=== PATIENT | female | born 1975 | race Caucasian/White ===

== ENCOUNTER 2017-02-18 18:10 | Emergency (ER) | payer OTHER ==
[2017-02-18 18:42] VITALS: BP 101/57
--- NOTE | 2017-02-18 20:54 | UC ---
Laceration HPI - HPI Summary HPI Summary: CUTTING A PLASTIC BAG WITH A KITCHEN KNIFE TODAY AROUND 5:30PM AND CUT HER LEFT FINGER OVER DIP JOINT. LAST TETANUS 08/2015 - History Of Current Complaint Chief Complaint: UCLaceration Stated Complaint: FINGER LACERATION Time Seen by Provider: 02/18/17 20:35 Hx Obtained From: Patient Laceration Location: Hand - OVERLYING LEFT 3RD DIP JOINT Mechanism Of Injury: Sharp Trauma Onset/Duration: Sudden Onset, Lasting Hours, Still Present Severity: Moderate Pain Intensity: 9 Pain Scale Used: 0-10 Numeric Related History: Dominant Hand Right - Allergies/Home Medications Allergies/Adverse Reactions: Allergies Allergy/AdvReac Type Severity Reaction Status Date / Time Amoxicillin [From Augmentin] Allergy Rash Verified 09/06/15 07:27 Clavulanic Acid Allergy Rash Verified 09/06/15 07:27 [From Augmentin] Prednisone Allergy Rash Verified 09/06/15 07:27 PMH/Surg Hx/FS Hx/Imm Hx Endocrine History Of: 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; borderline Denies: Thyroid Disease Cardiovascular History Of: Denies: Cardiac Disorders, Hypertension Respiratory History Of: Reports: Asthma Denies: COPD GI/ History Of: Denies: Ulcer Cancer History Of: Denies: Breast Cancer - Surgical History Surgical History: Yes Surgery Procedure, Year, and Place: tonsillectomy as a child - Family History Known Family History: Positive: Hypertension - Social History Alcohol Use: None Substance Use Type: None Smoking Status (MU): Never Smoked Tobacco Have You Smoked in the Last Year: No - Immunization History Most Recent Influenza Vaccination: 2014 Most Recent Tetanus Shot: Aug 2015 Review of Systems Constitutional: Negative Skin: Other - LACERATION Respiratory: Negative Cardiovascular: Negative Gastrointestinal: Negative All Other Systems Reviewed And Are Negative: Yes Physical Exam Triage Information Reviewed: Yes Appearance: Well-Appearing, No Pain Distress, Well-Nourished Vital Signs: Initial Vital Signs Temp 98.6 F 02/18/17 18:38 Pulse 82 02/18/17 18:38 Resp 16 02/18/17 18:38 BP 101/57 02/18/17 18:38 Pulse Ox 100 02/18/17 18:38 Vital Signs Reviewed: Yes Eyes: Positive: Conjunctiva Clear ENT: Positive: Hearing grossly normal Neck: Positive: Supple Respiratory: Positive: No respiratory distress, No accessory muscle use Cardiovascular: Positive: Pulses Normal Abdomen Description: Positive: Soft Musculoskeletal: Positive: ROM Intact, No Edema Neurological: Positive: Alert Psychological: Positive: Age Appropriate Behavior Skin: Positive: Other - 1CM LINEAR LACERATION LEFT 3RD FINGER OVERLYING DIP JOINT Laceration Repair - Laceration Repair 1 Description: Linear Laceration Size After Repair: Length (cm) - 1CM, Width (mm) - 0MM, Depth (mm) - 2MM Irrigation With Pressure Irrigation Device: Yes Closure Material: Skin Adhesive, SteriStrips Laceration Course/Dx - Differential Dx - Laceration/Wound Provider Diagnoses: LACERATION REPAIR LEFT 3RD FINGER Discharge - Discharge Plan Condition: Stable Disposition: HOME Patient Education Materials: Finger Laceration (ED), Steristrips (ED) Referrals: MAGGY Dejesus [Primary Care Provider] - If Needed Additional Instructions: STERISTRIPS WILL FALL OFF ON THEIR OWN. NO PROLONGED SUBMERSION IN WATER. WEAR SPLINT UNTIL HEALED. SEEK FOLLOW-UP IF YOU DEVELOP SPREADING REDNESS OF THE SKIN, PURULENT DRAINAGE, FEVER, INCREASED PAIN OR ANY OTHER CONCERNING SYMPTOMS
== END 2017-02-18 21:52 | disposition home or self-care (01) ==
LOC: UCEAST 18:10
DX: S61.213A Laceration without foreign body of left middle finger without damage to nail, initial encounter (principal); W26.0XXA Contact with knife, initial encounter; Y93.89 Activity, other specified; Y92.9 Unspecified place or not applicable; Z88.1 Allergy status to other antibiotic agents; R73.03 Prediabetes
CPT/HCPCS: 99211; G0463

== ENCOUNTER 2017-04-20 22:33 | Emergency (ER) | payer OTHER ==
[2017-04-20] MEDS ORDERED: predniSONE TAB* 20 MG PO ONE (22:59)
[2017-04-20] MEDS ORDERED: diPHENhydraMINE PO* 25 MG PO ONE (22:59)
[2017-04-20] MEDS ORDERED: methylPREDNISolone 125 MG* 2 ML VIAL IM ONE (23:16)
[2017-04-20 23:29] VITALS: BP 112/64
--- NOTE | 2017-04-21 00:01 | ED ---
Maurilio Zhang Rebecca, scribed for Janusz Olivo on 04/20/17 at 2302 . Skin Complaint - HPI Summary HPI Summary: Pt is a 41 y/o F who presents to ED c/o rash. Reports rash began suddenly last night on the forehead and spread to the rest of her face tonight. Rash is described as erythematous and hot. Sx aggravated and alleviated by nothing. Denies SOB. Denies any associated pain. Has not taken Benadryl. Has not eaten anything unusual or applied any new face creams or washes. - History of Current Complaint Chief Complaint: EDRashSkinAbscess Time Seen by Provider: 04/20/17 22:56 Stated Complaint: RASH Hx Obtained From: Patient Hx Last Menstrual Period: 4 WEEKS AGO Onset/Duration: Started Days Ago - yesterday, Still Present Timing: Constant Current Severity: None Pain Intensity: 0 Pain Scale Used: 0-10 Numeric Skin Location: Face Character: Redness - and hot Aggravating Symptom(s): Nothing Alleviating Symptom(s): Nothing Associated Signs & Symptoms: Negative - Allergy/Home Medications Allergies/Adverse Reactions: Allergies Allergy/AdvReac Type Severity Reaction Status Date / Time Amoxicillin [From Augmentin] Allergy Rash Verified 04/20/17 22:36 Clavulanic Acid Allergy Rash Verified 04/20/17 22:36 [From Augmentin] Prednisone Allergy Rash Verified 04/20/17 22:36 PMH/Surg Hx/FS Hx/Imm Hx Endocrine/Hematology History: Reports: Hx Diabetes - type 2; borderline Denies: Hx Thyroid Disease Cardiovascular History: Denies: Hx Hypertension Respiratory History: Reports: Hx Asthma Denies: Hx Chronic Obstructive Pulmonary Disease (COPD) GI History: Denies: Hx Ulcer - Surgical History Surgery Procedure, Year, and Place: tonsillectomy as a child Infectious Disease History: No Infectious Disease History: Denies: Hx Clostridium Difficile, Hx Hepatitis, Hx Human Immunodeficiency Virus (HIV), Hx of Known/Suspected MRSA, Hx Shingles, Hx Tuberculosis, Hx Known/ Suspected VRE, Hx Known/Suspected VRSA, History Other Infectious Disease, Traveled Outside the [place] in Last 30 Days - Family History Known Family History: Positive: Hypertension - Social History Alcohol Use: None Substance Use Type: Reports: None Smoking Status (MU): Never Smoked Tobacco Have You Smoked in the Last Year: No Review of Systems Negative: Shortness Of Breath Positive: Rash - erythematous and hot, on the face All Other Systems Reviewed And Are Negative: Yes Physical Exam - Summary Physical Exam Summary: Appearance: Well appearing, no pain distress Skin: warm, dry. Papular rash of the face with some mild erythema. Head/face: normal Eyes: EOMI, JEZ ENT: normal Neck: supple, nontender Resp: CTA, breath sounds present Cardio: RRR, pulses symm Musc: normal, strength/ROM intact Neuro: normal, sensory motor intact, A&Ox3 Triage Information Reviewed: Yes Vital Signs On Initial Exam: Initial Vitals Temp Pulse Resp BP Pulse Ox 98.0 F 94 18 115/78 99 04/20/17 22:36 04/20/17 22:36 04/20/17 22:36 04/20/17 22:36 04/20/17 22:36 Vital Signs Reviewed: Yes Diagnostics - Vital Signs Vital Signs Temp Pulse Resp BP Pulse Ox 04/20/17 22:36 98.0 F 94 18 115/78 99 - Laboratory Lab Statement: Any lab studies that have been ordered have been reviewed, and results considered in the medical decision making process. Course/Dx - Course Assessment/Plan: Pt is a 41 y/o F with a CC of facial rash charcaterized as erythematous and hot since last night. Denies any pain and SOB. Has not taken Benadryl. She was administered Benadryl, Solu-Medrol and Deltasone in the course of the ED. Pt will be D/C to home with a Dx of allergic reaction and Rx for Benadryl and Medrol. - Diagnoses Provider Diagnoses: Allergic reaction Discharge - Discharge Plan Condition: Stable Disposition: HOME Prescriptions: Methylprednisolone [Medrol Dosepak 4 MG*] 0 mg PO .SEE [employer] #1 tab diPHENhydraMINE PO* [Benadryl PO 25 MG TAB*] 25 mg PO TID PRN #20 tab PRN Reason: Itching Referrals: Alexandra SWAIN,Stalin Reynoso [Primary Care Provider] - 3 Days The documentation as recorded by the Maurilio leal Rebecca accurately reflects the service I personally performed and the decisions made by , Janusz Olivo.
== END 2017-04-20 23:29 | disposition home or self-care (01) ==
LOC: ED 22:33
DX: T78.49XA Other allergy, initial encounter (principal); X58.XXXA Exposure to other specified factors, initial encounter; R21 Rash and other nonspecific skin eruption
CPT/HCPCS: 99282; A9270-GY; J2930; J7512

== ENCOUNTER 2017-10-18 21:55 | Emergency (ER) | payer OTHER ==
[2017-10-18] MEDS ORDERED: predniSONE TAB* 20 MG PO ONE (22:23)
[2017-10-18] MEDS ORDERED: Albuterol/Ipratropium NEB.SOL* Albuterol 2.5 MG/Ipratropium 0.5 MG 3 ML INH ONE (22:25)
[2017-10-18 23:16] VITALS: BP 135/76
--- NOTE | 2017-10-20 03:18 | ED ---
Ramesh Zhang Gabriel, scribed for Nilton Hopper MD on 10/18/17 at 2223 . Complex/Multi-Sys Presentation - HPI Summary HPI Summary: This patient is a 42 year old F presenting to [facility] with a chief complaint of chest congestion since couple days. The patient rates the pain 9/10 in severity. Patient reports CP, coughing, and rhinorrhea. Patient denies fever. Patient states colds usually cause her asthma to flare up so she has been using her albuterol inhaler. - History Of Current Complaint Chief Complaint: EDUpperRespComplaint Time Seen by Provider: 10/18/17 22:15 Hx Obtained From: Patient Onset/Duration: Lasting Days - 2, Still Present Timing: Constant Severity Currently: Severe Associated Signs And Symptoms: Positive: Cough, Chest Pain, Other - rhinorrhea. Negative: Fever - Allergies/Home Medications Allergies/Adverse Reactions: Allergies Allergy/AdvReac Type Severity Reaction Status Date / Time Amoxicillin [From Augmentin] Allergy Rash Verified 09/29/17 15:03 Clavulanic Acid Allergy Rash Verified 09/29/17 15:03 [From Augmentin] Prednisone Allergy Rash Verified 09/29/17 15:03 PMH/Surg Hx/FS Hx/Imm Hx Previously Healthy: No Endocrine/Hematology History: Reports: Hx Diabetes - type 2; borderline Denies: Hx Thyroid Disease Cardiovascular History: Denies: Hx Hypertension Respiratory History: Reports: Hx Asthma Denies: Hx Chronic Obstructive Pulmonary Disease (COPD) GI History: Denies: Hx Ulcer - Surgical History Surgery Procedure, Year, and Place: tonsillectomy as a child Infectious Disease History: No Infectious Disease History: Denies: Hx Clostridium Difficile, Hx Hepatitis, Hx Human Immunodeficiency Virus (HIV), Hx of Known/Suspected MRSA, Hx Shingles, Hx Tuberculosis, Hx Known/ Suspected VRE, Hx Known/Suspected VRSA, History Other Infectious Disease, Traveled Outside the [place] in Last 30 Days - Family History Known Family History: Positive: Hypertension - Social History Alcohol Use: Occasionally Substance Use Type: Reports: None Smoking Status (MU): Never Smoked Tobacco Have You Smoked in the Last Year: No Review of Systems Negative: Fever Positive: Nasal Discharge Positive: Chest Pain Positive: Cough All Other Systems Reviewed And Are Negative: Yes Physical Exam - Summary Physical Exam Summary: Appearance: Well appearing, no pain distress Skin: warm, dry, reflects adequate perfusion Head/face: normal Eyes: EOMI, JEZ ENT: normal, Clear post nasal drip and discharge, Left ear is impacted with cerumen Neck: supple, non-tender Respiratory: CTA, breath sounds present Cardiovascular: RRR, pulses symmetrical Abdomen: non-tender, soft Bowel: present Musculoskeletal: normal, strength/ROM intact Neuro: normal, sensory motor intact, A&Ox3 Triage Information Reviewed: Yes Vital Signs On Initial Exam: Initial Vitals Temp Pulse Resp BP Pulse Ox 97.8 F 103 18 129/75 100 10/18/17 21:58 10/18/17 21:58 10/18/17 21:58 10/18/17 21:58 10/18/17 21:58 Vital Signs Reviewed: Yes Diagnostics - Vital Signs Vital Signs Temp Pulse Resp BP Pulse Ox 10/18/17 21:58 97.8 F 103 18 129/75 100 - Laboratory Lab Statement: Any lab studies that have been ordered have been reviewed, and results considered in the medical decision making process. Re-Evaluation - Re-Evaluation First Eval Re-Evaluation Time: 22:32 Change: Unchanged - Patient has allergy to prednisone listed but we discussed this and she states she recently has taken it with no adverse effects. Complex Multi-Symp Course/Dx Course Of Treatment: well appearing with URI/bronchitis sx. Tx symptomatically. F/U closely with PMD. - Diagnoses Provider Diagnoses: Acute bronchitis Discharge - Discharge Plan Condition: Good Disposition: HOME Prescriptions: Guaifenesin/Pseudo 600/60(NF) [Mucinex D 600/60 (NF)] 1 tab PO Q12H #10 tab Oxymetazoline 0.05% NASAL SPR* [Afrin 0.05% NASAL SPRAY*] 1 spray NASAL Q12H PRN 3 Days #1 btl PRN Reason: Congestion predniSONE TAB* [Deltasone TAB*] 50 mg PO DAILY #3 tab Patient Education Materials: Acute Bronchitis (ED) Referrals: Kristy Campos MD [Primary Care Provider] - Additional Instructions: Return with fevers, difficulty breathing, worse or other concerns as discussed. Use inhaler every 4hrs until well. Use humidifier while sleeping. Avoid smoke/ smokers. The documentation as recorded by the Ramesh leal Gabriel accurately reflects the service I personally performed and the decisions made by Ward banuelos Kirk, MD.
== END 2017-10-18 23:09 | disposition home or self-care (01) ==
LOC: ED 21:55
DX: J20.9 Acute bronchitis, unspecified (principal); R05 Cough; R07.9 Chest pain, unspecified; J34.89 Other specified disorders of nose and nasal sinuses
CPT/HCPCS: 94640; 99282; A9270-GY; J7512

== ENCOUNTER 2017-12-09 07:25 | Emergency (ER) | payer SELFPAY ==
--- NOTE | 2017-12-09 08:53 | UC ---
Shoulder Pain HPI - HPI Summary HPI Summary: c/o shoulder arm and flank pain after slipping on the ice last night, states pain has become worse - History of Current Complaint Chief Complaint: UCUpperExtremity Stated Complaint: SHOULDER BACK UPPER ARM Time Seen by Provider: 12/09/17 08:38 Hx Obtained From: Patient Hx Last Menstrual Period: on prevara ?: No Onset/Duration: Sudden Onset Timing: Hours Severity Initially: Mild Severity Currently: Mild Location Of Pain: Is Discrete @ - right shoulder, right flank and lumbosacral area Pain Scale Used: 0-10 Numeric - 5 Aggravating Factor(s): Extension Alleviating Factor(s): OTC Meds Associated Signs And Symptoms: Positive: Negative - Risk Factors Non-Orthopedic Risk Factor: Negative DVT Risk Factors: Negative Septic Arthritis Risk Factor: Negative - Allergies/Home Medications Allergies/Adverse Reactions: Allergies Allergy/AdvReac Type Severity Reaction Status Date / Time Amoxicillin [From Augmentin] Allergy Rash Verified 12/09/17 07:47 Clavulanic Acid Allergy Rash Verified 12/09/17 07:47 [From Augmentin] PMH/Surg Hx/FS Hx/Imm Hx Previously Healthy: Yes Endocrine History: Other - PCOS Other Endocrine History: pcos - Surgical History Surgical History: Yes Surgery Procedure, Year, and Place: tonsillectomy as a child - Family History Known Family History: Positive: Hypertension - Social History Alcohol Use: Occasionally Substance Use Type: None Smoking Status (MU): Never Smoked Tobacco Have You Smoked in the Last Year: No - Immunization History Most Recent Influenza Vaccination: 2014 Most Recent Tetanus Shot: Aug 2015 Review of Systems Constitutional: Negative All Other Systems Reviewed And Are Negative: Yes Physical Exam Triage Information Reviewed: Yes Appearance: Well-Appearing Vital Signs: Initial Vital Signs Temp 98 F 12/09/17 07:48 Pulse 71 12/09/17 07:48 Resp 16 12/09/17 07:48 BP 105/61 12/09/17 07:48 Pulse Ox 100 12/09/17 07:48 Vital Signs Reviewed: Yes Eye Exam: Normal ENT Exam: Normal Neck exam: Normal Respiratory Exam: Normal Cardiovascular Exam: Normal Abdominal Exam: Normal Musculoskeletal Exam: Other - mild tenderness on palpation on right ribcage. FROM remedios TRIMBLE negative, impingement negative, tender on palpation coccix area and lumbar area b/l Shoulder Course/Dx - Course Course Of Treatment: continue tylenol as needed for pain, xrays are negative for fracture - Differential Dx/Diagnosis Provider Diagnoses: CHronic lumbago. Contusion of right shoulder and ribcage Discharge - Discharge Plan Condition: Stable Disposition: HOME Patient Education Materials: Low Back Strain (ED), Lower Back Exercises (ED) Referrals: Kristy Campos MD [Primary Care Provider] -
--- NOTE | 2017-12-09 09:36 | RAD ---
HISTORY: Fall, right shoulder pain COMPARISONS: None VIEWS: 4, Frontal internal rotation, external rotation, outlet, and axillary views of the right shoulder FINDINGS: BONE DENSITY: Normal. BONES: There is no displaced fracture. JOINTS: There is no arthropathy. ALIGNMENT: There is no dislocation. SOFT TISSUES: Unremarkable. OTHER FINDINGS: None. IMPRESSION: NO ACUTE OSSEOUS INJURY. IF SYMPTOMS PERSIST, RECOMMEND REPEAT IMAGING.
--- NOTE | 2017-12-09 09:38 | RAD ---
HISTORY: Fall, right flank pain COMPARISONS: None VIEWS: 4, Frontal and oblique views of the right hemithorax. FINDINGS: There is no displaced rib fracture or pneumothorax. The visualized lungs are clear. IMPRESSION: NO DISPLACED RIB FRACTURE OR PNEUMOTHORAX.
--- NOTE | 2017-12-09 09:40 | RAD ---
HISTORY: Fall, sacral pain COMPARISONS: None VIEWS: 7 , Frontal, lateral, coned-down lateral sacral, and bilateral oblique views of the lumbar spine. FINDINGS: ALIGNMENT: The alignment is normal. VERTEBRAL BODIES: The vertebral body heights are normal. The interpedicular distances are normal. There is mild anterolateral marginal osteophyte formation. JOINTS: There is mild facet hypertrophic change along the lower lumbar spine. INTERVERTEBRAL DISCS: There is mild diffuse loss of intervertebral disc height. SOFT TISSUE: There is a soft tissue calcification posterior to the sacrum on the left measuring 1.5 cm in size, likely dystrophic calcification. OTHER: The pelvis is unremarkable. The lung bases are clear. IMPRESSION: MILD DEGENERATIVE CHANGES.
[2017-12-09 09:50] VITALS: BP 127/86
== END 2017-12-09 09:55 | disposition home or self-care (01) ==
LOC: UCEAST 07:25
DX: M54.5 Low back pain (principal); S40.011A Contusion of right shoulder, initial encounter; S20.20XA Contusion of thorax, unspecified, initial encounter; W00.0XXA Fall on same level due to ice and snow, initial encounter; Y93.9 Activity, unspecified; Y92.9 Unspecified place or not applicable; M51.37 Other intervertebral disc degeneration, lumbosacral region; Z88.1 Allergy status to other antibiotic agents
CPT/HCPCS: 72110; 99212; G0463

== ENCOUNTER 2019-11-18 16:54 | Emergency (ER) | payer OTHER | END 2019-11-18 17:00 | disposition left against medical advice (07) | LOC: UCEAST 16:54 | DX: Z53.21 Procedure and treatment not carried out due to patient leaving prior to being seen by health care provider (principal) ==